=== PATIENT | female | born 1965 | race Caucasian/White ===

== ENCOUNTER 2017-09-21 14:45 | Outpatient (RCR) | payer BC ==
--- NOTE | 2017-07-19 15:28 | PT PLAN OF CARE ---
Physician: Leann Edwards NP Patient is being seen: 2-3x/Week Therapist: Elaine Mauro, PT, DPT, CLT Medical Diagnosis: Arthralgia of multiple joints Treatment Diagnosis: Low back pain, L cuboid syndrome, L foot pain, thoracic pain, cervicalgia Date of Onset: 04/18/17 Date of Initial Evaluation: 04/19/17 Date patient was last seen: 07/19/17 Number of treatments: 24 Number of cancellations/No shows: 5 INTERVENTIONS: Manual Therapy/STM/MET Strengthening/condition Ice/Heat Range of Motion Spinal Stabilization Ultrasound Stretching Iontophoresis Neuromuscular Re-ed Closed Chain Program Electrical Stim Posture/Body mechanics Gait Trg/Balance Trg Home Exercise Program Mech./Manual Traction Therapeutic Activities Pelvic Floor GOALS: In 3 weeks pt will have no pain with 5 digit passive adduction indicating increased functional mobility for ADL's. MET In 6 weeks pt will be able to wear normal shoes without increased pain in the lateral aspect of her foot resulting in increased ability to perform ADL's. MET In 6 weeks pt will have back and neck pain of 2/10 or less with all functional mobility and performance of ADL's. MET In 6 weeks pt will be able to perform 5 single leg squats with B LE without onset of knee valgus or pain for increased functional ability to perform ADL's and caregiving needs. In progress In 6 weeks pt will decrease L lateral foot pain to 0/10 with daily ambulation for increased function with ADL's. In Progress In 6 weeks pt will be compliant with L external foot support to promote decreased cuboid mobility and improved arch support for decreased pain in the foot and knee with daily ambulation and ADL's. MET PATIENT'S GOAL: Decrease back, neck and foot pain. Status of Patient's Goals: 3/6 Goals Met, 2/6 In Progress Patient Compliance: Good Prognosis: Good Reasons for continuing therapy: Pt shows progress with vestibular hypofunctioning and is independent with HEP for continuation with decreased nystagmus at rest and reported decreased dizziness. Patel's neuroma is no longer present and pt no longer experiences distal foot pain and is able to wear all types of shoes without compression. Lingering symptoms remain with hypermobility of the L cuboid with frequent cuboid drop which is associated with pain, however pt has initiated wearing arch support which appears to have decreased symptoms. L knee continues to have episodes of lateral tracking, but shows progress with both medial and lateral quad activation as well as lateral hip activation. Posture: Pt has rearfoot varus with L distal fibula is moderately anteriorly displaced. Medial arch on the L side is not present with full WB and pt has increased inversion on the L foot at rest. ROM: Full ROM of ankle without pain. Cervical ROM: full and pain free in all motions excluding B sidebending with minimal restrictions and stiffness on the L lateral/posterior neck. Strength: Ankles: 5/5 with all major motions. Palpation: TTP on superior aspect of the cuboid with noted cuboid edema present. If you have any questions or concerns, please feel free to contact me at . Thank you, Elaine Mauro, PT, DPT, CLT [place]
[~2017-09-21 14:45] MED LIST: ADV100/50 INH; ALB6.7R INH; AMA100 PO; AZIT-1 PO; AZIT-17 PO; AZIT500T45 PO; CEFU250T11 PO; CHOL100094 PO; CHOL200021 PO; CYAN25004 PO; DILT-102 PO; DIPH-466 PO; DOCU-416 PO; ELET20TA2 PO; FLUT16SP19; GLUC-179 PO; GLUC-198 PO; GUAI480S48 PO; HYDR-4309 PO; HYDR473S4 PO; IBU800 PO; KET10 PO; LEVO-85 PO; LOR5 PO; MEC25 PO; MECL12.5 PO; MECL25TA9 PO; METH4TAB66 PO; MON10 PO; OND4 PO; ONDA4TAB PO; ONDA4TAB9 PO; ONDA4TAB97 PO; OXYB10TA16 PO; OXYC-865 PO; PHEN-530 PO; PRE10 PO; PRO25 PO; RANI15SY PO; TAMO20TA19 PO; TAMO20TA24 PO; TAMS0.4C25 PO; VENL150C61 PO; VENL37.514 PO; VENL37.594 PO; VENL75CA58 PO; Z PACK; ZYRTEC
--- NOTE | 2017-09-21 15:39 | PT PLAN OF CARE ---
Physician: Leann Edwards NP Patient is being seen: 2-3x/Week Therapist: Elaine Mauro, PT, DPT, CLT Medical Diagnosis: Arthralgia of multiple joints Treatment Diagnosis: Low back pain, L cuboid syndrome, L foot pain, thoracic pain, cervicalgia Date of Onset: 04/18/17 Date of Initial Evaluation: 04/19/17 Date patient was last seen: 09/21/17 Number of treatments: 35 Number of cancellations/No shows: 5 INTERVENTIONS: Manual Therapy/STM/MET Strengthening/condition Ice/Heat Range of Motion Spinal Stabilization Ultrasound Stretching Iontophoresis Neuromuscular Re-ed Closed Chain Program Electrical Stim Posture/Body mechanics Gait Trg/Balance Trg Home Exercise Program Mech./Manual Traction Therapeutic Activities Pelvic Floor GOALS: In 3 weeks pt will have no pain with 5 digit passive adduction indicating increased functional mobility for ADL's. MET In 6 weeks pt will be able to wear normal shoes without increased pain in the lateral aspect of her foot resulting in increased ability to perform ADL's. MET In 6 weeks pt will have back and neck pain of 2/10 or less with all functional mobility and performance of ADL's. MET In 6 weeks pt will be able to perform 5 single leg squats with B LE without onset of knee valgus or pain for increased functional ability to perform ADL's and caregiving needs. MET In 6 weeks pt will decrease L lateral foot pain to 0/10 with daily ambulation for increased function with ADL's. MET In 6 weeks pt will be compliant with L external foot support to promote decreased cuboid mobility and improved arch support for decreased pain in the foot and knee with daily ambulation and ADL's. MET PATIENT'S GOAL: Decrease back, neck and foot pain. Status of Patient's Goals: 6/6 Goals Met Patient Compliance: Good Prognosis: Good Reasons for discharge from therapy: Crystal is to discharge from physical therapy at this time secondary to completion of 6/6 functional goals. Pt no longer is having any more pain and shows good functional strength with ADL's and mobility. Upon discharge pt is to continue with HEP for maintenance of strength and stability as well as prevention of further injury. ROM: Full ROM of ankle without pain. Cervical ROM: full and pain free in all motions Strength: B LE strength: 5/5 with all major motions. Mobility: Pt able to ascend and descend stairs without pain or any knee valgus. Pt able to perform 5 single leg squats B without knee valgus or crepitus. Pain: Pt reports no pain at this time If you have any questions or concerns, please feel free to contact me at [phone]. Thank you, Elaine Mauro, PT, DPT, CLT MTDD
== END 2017-09-21 18:00 | disposition home or self-care (01) ==
LOC: PT 14:45
PROVIDERS: ATTEND Nurse Practitioner Family
DX: M25.50 Pain in unspecified joint (principal); M19.90 Unspecified osteoarthritis, unspecified site; M54.5 Low back pain; M79.672 Pain in left foot; M54.6 Pain in thoracic spine; M54.2 Cervicalgia; W22.09XA Striking against other stationary object, initial encounter